=== PATIENT | male | born 1960 | race Caucasian/White ===

== ENCOUNTER 2016-06-15 15:13 | Inpatient (IN) | payer OTHER ==
[~2016-06-15] VITALS: Ht 188 cm; Wt 117.7 kg
[~2016-06-15 15:13] MED LIST: ABILIFY; ABILIFY20 MG PO; AMLODIPINE; AMLODIPINE BESY10 MG PO; AMOXICILLIN875 MG PO; BACLOFEN10 MG PO; BENZTROPINE MESY1 MG PO; COGENTIN; COGENTIN1 MG PO; CYMBALTA; CYMBALTA20 MG PO; ENDOCET 5-3251 EACH PO; FLEXERIL; FLUOXETINE HCL40 MG PO; FLUPHENAZINE HCL5 MG PO; GEODON60 MG PO; KEFLEX500 MG PO; LASIX20 MG PO; MOTRIN800 MG PO; NAPROXEN500 MG PO; OXAYDO7.5 MG PO; PEN-VEE K,VEET500 MG PO; PERCOCET; PRAVASTATIN SOD20 MG PO; PRAVASTATIN SOD80 MG PO; SIMVASTATIN; VICODIN 5-3001 EACH PO; XANAX0.25 MG PO; ZIPRASIDONE HCL80 MG PO
[2016-06-15 17:03] LABS: HEMATOCRIT 35.9 % (38.0-50.0); MCH 29.5 PG (29.0-34.0); MCHC 35.1 G/DL (30.0-36.0); MCV 84.1 FL (86-99); MEAN PLAT.VOLUME 8.8 uM^3 (9.0-12.4); PLATELET COUNT 290 K/uL (156-360); RBC DIS.WIDTH-CV 12.6 % (11.8-14.6); RBC DIS.WIDTH-SD 38.1 % (39-53); RED BLOOD COUNT 4.27 M/uL (4.00-5.50); WHITE BLOOD COUNT 16.9 K/uL (4.1-10.2)
[2016-06-15 17:21] LABS: CHLORIDE 102 mEq/L (99-109); SODIUM 135 mEq/L (136-147)
[2016-06-15 17:23] LABS: GLUCOSE 109 mg/dL (70-99)
[2016-06-15 17:24] LABS: ANION GAP 9 MEQ/L (2-14)
[2016-06-15 17:26] LABS: ALKALINE PHOSPHATASE 76 IU/L (3-129)
[2016-06-15 17:27] LABS: GFR ESTIMATE (CALCULATED) > 59 mL/min/
[2016-06-15 17:28] LABS: UREA NITROGEN (BUN) 8 mg/dL (9-23)
[2016-06-15] MEDS ORDERED: LORAZEPAM0.5 MG PO (21:46)
[2016-06-15] MEDS ORDERED: TRAMADOL HCL50 MG PO (21:47)
[2016-06-15] MEDS ORDERED: LIPITOR80 MG PO (21:47)
[2016-06-16 00:15] VITALS: BP 103/76
[2016-06-16 06:29] LABS: EOSINOPHIL (%) 2.2 % (0-5); EOSINOPHIL COUNT 0.3 K/uL (0-0.3); HEMATOCRIT 34.4 % (38.0-50.0); IMMATURE GRANULOCYTE (%) 0.4 % (0.0-0.7); IMMATURE GRANULOCYTE COUNT 0.5 K/uL; LYMPHOCYTE COUNT 1.4 K/uL (1.0-2.8); MCH 29.3 PG (29.0-34.0); MEAN PLAT.VOLUME 8.5 uM^3 (9.0-12.4); MONOCYTE (%) 10.3 % (3-12); MONOCYTE COUNT 1.2 K/uL (0-0.8); NEUTROPHIL (%) 74.8 % (45-76); NEUTROPHIL COUNT 8.7 K/uL (1.8-6.4); PLATELET COUNT 244 K/uL (156-360); RBC DIS.WIDTH-SD 40.2 % (39-53)
[2016-06-16 06:30] LABS: WHITE BLOOD COUNT 11.6 K/uL (4.1-10.2)
[2016-06-16 07:43] VITALS: BP 112/69
[2016-06-16 14:44] LABS: HDL CHOLESTEROL 34 MG/DL (Desirable>=40); LDL CHOLESTEROL 88 mg/dL (Desirable<100); NON-HDL CHOLESTEROL 121 mg/dL (Desirable<160); TOTAL CHOLESTEROL 155 mg/dL (Desirable<200); TRIGLYCERIDES 167 MG/DL (Normal: <150)
[2016-06-16 15:19] LABS: Estimated Average Glucose 111 mg/dL (70-123); HEMOGLOBIN A1c (GLYCOHEMOGLOB) 5.5 % HGB (Below 5.7)
[2016-06-17 00:45] VITALS: BP 129/73
[2016-06-17 06:25] LABS: HEMATOCRIT 33.2 % (38.0-50.0); MCH 27.9 PG (29.0-34.0); MCHC 32.2 G/DL (30.0-36.0); MCV 86.7 FL (86-99); MEAN PLAT.VOLUME 8.9 uM^3 (9.0-12.4); PLATELET COUNT 253 K/uL (156-360); RBC DIS.WIDTH-CV 13.4 % (11.8-14.6); RBC DIS.WIDTH-SD 42.6 % (39-53); RED BLOOD COUNT 3.83 M/uL (4.00-5.50); WHITE BLOOD COUNT 9.7 K/uL (4.1-10.2)
[2016-06-17 06:49] LABS: ANION GAP 7 MEQ/L (2-14); CHLORIDE 101 MEQ/L (99-109); GFR ESTIMATE (CALCULATED) 56 mL/min/; GLUCOSE 88 mg/dL (70-99); SAMPLE HEMOLYSIS CHECK 0; SAMPLE ICTERIC CHECK 0; SAMPLE LIPEMIA CHECK 0; SODIUM 135 MEQ/L (136-147); UREA NITROGEN (BUN) 10 mg/dL (9-23)
[2016-06-17] MEDS ORDERED: KEFLEX500 MG PO (07:33)
[2016-06-17 08:00] VITALS: BP 122/69
[2016-06-17] MEDS ORDERED: NEURONTIN100 MG PO (09:49)
[2016-06-17 11:26] VITALS: BP 95/51
[2016-06-17 12:00] VITALS: BP 145/63
[2016-06-18] MEDS ORDERED: CLEOCIN300 MG PO (19:23)
[2016-06-18] MEDS ORDERED: ULTRAM50 MG PO (20:29)
== END 2016-06-17 14:47 | disposition home or self-care (01) | DRG 872 ==
LOC: EME 15:13 → EDOF 22:12 → 5SOUTH 22:12
PROVIDERS: Internal Medicine; Nurse Practitioner Family; Physician Assistant
DX: A41.9 Sepsis, unspecified organism (principal); L03.116 Cellulitis of left lower limb; N17.9 Acute kidney failure, unspecified; T36.8X5A Adverse effect of other systemic antibiotics, initial encounter; L03.032 Cellulitis of left toe; E78.5 Hyperlipidemia, unspecified; I10 Essential (primary) hypertension; Z89.412 Acquired absence of left great toe
CPT/HCPCS: 73630; 73720; 80048; 80053; 80061; 80202; 83036; 83605; 85025; 85027; 87040; 99281; 99285; J0295; J1170; J1650; J2270; J2405; J2543; J3010; J3370; J7030; J7050

== ENCOUNTER 2016-06-18 15:36 | Emergency (ER) | payer OTHER ==
[~2016-06-18] VITALS: Ht 170.2 cm; Wt 121.2 kg
[~2016-06-18 15:36] MED LIST changes: +LIPITOR80 MG PO; +LORAZEPAM0.5 MG PO; +NEURONTIN100 MG PO; +TRAMADOL HCL50 MG PO
[2016-06-18 18:34] LABS: HEMATOCRIT 32.1 % (38.0-50.0); MCH 29.1 PG (29.0-34.0); MCHC 34.3 G/DL (30.0-36.0); MCV 84.9 FL (86-99); MEAN PLAT.VOLUME 8.1 uM^3 (9.0-12.4); PLATELET COUNT 312 K/uL (156-360); RBC DIS.WIDTH-CV 12.8 % (11.8-14.6); RBC DIS.WIDTH-SD 38.8 % (39-53); RED BLOOD COUNT 3.78 M/uL (4.00-5.50); WHITE BLOOD COUNT 9.6 K/uL (4.1-10.2)
[2016-06-18 18:42] LABS: CHLORIDE 102 mEq/L (99-109); SODIUM 139 mEq/L (136-147)
[2016-06-18 18:44] LABS: GLUCOSE 93 mg/dL (70-99)
[2016-06-18 18:46] LABS: ANION GAP 9 MEQ/L (2-14)
[2016-06-18 18:48] LABS: GFR ESTIMATE (CALCULATED) > 59 mL/min/
[2016-06-18 18:49] LABS: UREA NITROGEN (BUN) 10 mg/dL (9-23)
[2016-06-18] MEDS ORDERED: CLEOCIN300 MG PO (19:23)
[2016-06-18] MEDS ORDERED: ULTRAM50 MG PO (20:29)
[2016-06-18 23:02] VITALS: BP 114/68
== END 2016-06-18 23:04 | disposition home or self-care (01) ==
LOC: EME 15:36
PROVIDERS: Nurse Practitioner Family
DX: L03.116 Cellulitis of left lower limb (principal); G89.29 Other chronic pain; Z79.891 Long term (current) use of opiate analgesic
CPT/HCPCS: 80048; 83605; 85027; 87040; 99281; 99284; J0295; J1885; J3370; J7050

== ENCOUNTER 2016-09-07 13:35 | Day surgery (SDC) | payer OTHER ==
[~2016-09-07] VITALS: Ht 188 cm; Wt 118.8 kg
[~2016-09-07 13:35] MED LIST changes: +CLEOCIN300 MG PO; +NEURONTIN300 MG PO; +ULTRAM50 MG PO; +ZANTAC300 MG PO
== END 2016-09-07 15:20 | disposition home or self-care (01) ==
LOC: PAIN 13:35 → SDC 14:15 → PAIN 14:15
DX: M47.816 Spondylosis without myelopathy or radiculopathy, lumbar region (principal); M54.5 Low back pain; M51.36 Other intervertebral disc degeneration, lumbar region; M51.26 Other intervertebral disc displacement, lumbar region; M48.06 Spinal stenosis, lumbar region; M86.672 Other chronic osteomyelitis, left ankle and foot; I10 Essential (primary) hypertension; E78.5 Hyperlipidemia, unspecified; K21.9 Gastro-esophageal reflux disease without esophagitis; Z88.0 Allergy status to penicillin
CPT/HCPCS: J1030; J2250; J3010; S0020

== ENCOUNTER 2016-12-16 12:17 | Day surgery (SDC) | payer OTHER ==
[~2016-12-16] VITALS: Ht 188 cm; Wt 113.4 kg
[~2016-12-16 12:17] MED LIST changes: +LORCET 5-325 M1 EACH PO
== END 2016-12-16 14:00 | disposition home or self-care (01) ==
LOC: PAIN 12:17 → SDC 12:45 → PAIN 12:45
DX: M53.3 Sacrococcygeal disorders, not elsewhere classified (principal); M46.1 Sacroiliitis, not elsewhere classified; M48.06 Spinal stenosis, lumbar region; M47.816 Spondylosis without myelopathy or radiculopathy, lumbar region; M51.26 Other intervertebral disc displacement, lumbar region; I10 Essential (primary) hypertension; E78.5 Hyperlipidemia, unspecified; Z79.891 Long term (current) use of opiate analgesic; Z88.0 Allergy status to penicillin
CPT/HCPCS: J1030; J2250; J3010; S0020